=== PATIENT | female | born 1930 | race Two or more races ===

== ENCOUNTER 2017-11-13 21:37 | Inpatient (IN) | payer MEDICARE, OTHER ==
[~2017-11-13] VITALS: Ht 152.4 cm; Wt 48.1 kg
[~2017-11-13 21:37] MED LIST: ACET650T11 PO; CARB1TAB14 PO; CARB300C PO; ESCI20TA PO; PRAM1.5T3 PO; RASA1TAB PO
[2017-11-13] MEDS ORDERED: diphenhydrAMINE 50 MG/1 ML VIAL IV ONE (22:00)
[2017-11-13] MEDS ORDERED: IV NORMAL SALINE 1000 ML BAG IV ONE (22:00)
--- NOTE | 2017-11-13 22:00 | NUR ---
Patient brought in by rescue from home for c/o tremors worse than usual in the last 3 days. patient upon arrival unable to stay still. No other distress noted
--- NOTE | 2017-11-13 22:05 | NUR ---
FAMILY TO BRING IN LIST OF MEDS
[2017-11-13] MEDS ORDERED: diphenhydrAMINE 50 MG/1 ML VIAL ONE (22:35)
[2017-11-13 22:46] LABS: EOSINOPHILS % (AUTO) 0.1 % (0.0-7.0); HEMATOCRIT 26.9 % (31.2-41.9); LYMPHOCYTES # (AUTO) 1.6 K/uL (20.0-40.0); LYMPHOCYTES % (AUTO) 11.4 % (20.5-51.5); MEAN CORPUSCULAR HEMOGLOBIN 28.1 uug (24.7-32.8); MEAN CORPUSCULAR HGB CONC 34 g/dL (32.3-35.6); MEAN CORPUSCULAR VOLUME 83.9 fL (75.5-95.3); MONOCYTES # (AUTO) 1.4 K/uL (2.0-10.0); MONOCYTES % (AUTO) 10.1 % (0.0-11.0); NEUTROPHILS % (AUTO) 78.4 % (38.5-71.5); PLATELET COUNT (AUTO) 308 K/uL (179-408)
[2017-11-13 22:53] LABS: *BILIRUBIN,URIN NEGATIVE (NEGATIVE); *BLOOD, URINE 3+ (NEGATIVE); *CLARITY,URINE CLOUDY (CLEAR); *COLOR,URINE DARK YELLOW (YELLOW); *KETONES,URINE TRACE (NEGATIVE); *PROTEIN,URINE 2+ (NEGATIVE); *UROBILINOGEN,URINE 0.2 E.U./dl (NORMAL); LEUKOCYTE ESTERASE ,URINE 3+ (NEGATIVE); NITRITE, URINE POSITIVE (NEGATIVE); PH,URINE 8.5 (5.0-8.0); UGLUCOSE NEGATIVE (NEGATIVE)
[2017-11-13 22:59] LABS: ALANINE AMINOTRANSFERASE 7 U/L (14-59); ALKALINE PHOSPHATASE 89 U/L (50-136); ASPARTATE AMINOTRANSFERASE 33 U/L (15-37); BILIRUBIN,DIRECT 0.2 mg/dL (0.0-0.2); BILIRUBIN,TOTAL 0.6 mg/dL (0.2-1.0); CARBON DIOXIDE 23 mmol/L (21-32); CHLORIDE 101 mmol/L (98-107); CREATININE 1.3 mg/dL (0.6-1.3); GLUCOSE 114 mg/dL (74-106); POTASSIUM 4.5 mmol/L (3.5-5.1); TOTAL PROTEIN, SERUM 6.2 g/dL (6.4-8.2); UREA NITROGEN, BLOOD 52 mg/dL (7-18)
--- NOTE | 2017-11-13 23:00 | NUR ---
Patient clam sleeping with no distress noted
[2017-11-13 23:04] LABS: BACTERIA,URINE MANY /HPF (NONE SEEN); RBC,URINE 50-80 /HPF (0-3); SQUAMOUS EPITHELIAL CELL,UR FEW /HPF (NONE SEEN); WBC,URINE TNTC /HPF (0-3)
[2017-11-13] MEDS ORDERED: HYDROMORPHONE 1 MG/1 ML DISP.SYRIN IV ONE (23:15)
[2017-11-13] MEDS ORDERED: ONDANSETRON IV *ER 4 MG/2 ML VIAL IV ONE (23:15)
--- NOTE | 2017-11-13 23:23 | NUR ---
Call placed to Dr. Morton, message left for return call.
--- NOTE | 2017-11-13 23:27 | NUR ---
Dr. Morton [facility]
[2017-11-13] MEDS ORDERED: ASPI81TA31 PO (23:32)
[2017-11-13] MEDS ORDERED: DULO20CA PO (23:32)
[2017-11-13] MEDS ORDERED: NORT25CA5 PO (23:32)
[2017-11-13] MEDS ORDERED: QUET25TA PO (23:32)
[2017-11-13] MEDS ORDERED: RASA0.5T2 PO (23:32)
[2017-11-13] MEDS ORDERED: CARB-93 PO (23:32)
[2017-11-13] MEDS ORDERED: PRAV40TA PO (23:32)
[2017-11-13] MEDS ORDERED: PRAM1.5T7 PO (23:32)
[2017-11-13] MEDS ORDERED: ENTA200T PO (23:32)
--- NOTE | 2017-11-14 00:40 | NUR ---
transfered to 2nd floor Tele
[2017-11-14] MEDS ORDERED: CEFTRIAXONE 1 G in IV DEXTROSE 5% 50 ML IV SCH (00:45)
[2017-11-14] MEDS ORDERED: MAGNESIUM HYDROXIDE 30 ML LIQUID UDC PO PRN (00:45)
[2017-11-14] MEDS ORDERED: Z GUARD REMEDY PASTE 57 GM TUBE TOP PRN (00:45)
[2017-11-14] MEDS ORDERED: ONDANSETRON 4 MG/2 ML VIAL IV PRN (00:45)
--- NOTE | 2017-11-14 01:00 | NUR ---
Received patient from ER [facility] Admitted under the care of Dr. Valdez. Belongs list completed.
[2017-11-14 01:17] VITALS: BP 139/92
[2017-11-14 04:00] VITALS: BP 113/50
[2017-11-14] MEDS ORDERED: CEFTRIAXONE 1 G VIAL ONE (05:20)
[2017-11-14 06:40] LABS: BASOPHILS % (AUTO) 0.1 % (0.0-2.0); EOSINOPHILS % (AUTO) 0.1 % (0.0-7.0); HEMATOCRIT 25.4 % (31.2-41.9); HEMOGLOBIN 8.4 g/dL (10.9-14.3); LYMPHOCYTES # (AUTO) 1.3 K/uL (20.0-40.0); LYMPHOCYTES % (AUTO) 8.7 % (20.5-51.5); MEAN CORPUSCULAR HEMOGLOBIN 28.1 uug (24.7-32.8); MEAN CORPUSCULAR HGB CONC 33 g/dL (32.3-35.6); MEAN CORPUSCULAR VOLUME 84.6 fL (75.5-95.3); MONOCYTES % (AUTO) 13.8 % (0.0-11.0); NEUTROPHILS # (AUTO) 11.2 K/uL (1.8-8.9); NEUTROPHILS % (AUTO) 77.3 % (38.5-71.5); PLATELET COUNT (AUTO) 276 K/uL (179-408); WHITE BLOOD COUNT (AUTO) 14.5 K/uL (3.8-11.8)
--- NOTE | 2017-11-14 06:56 | NUR ---
pt. able to sleep the entire night. breathing even and nonlabored. safety measures provided. call light in reach. will endorse to AM shift nurse.
[2017-11-14 07:04] LABS: CARBON DIOXIDE 25 mmol/L (21-32); CHLORIDE 105 mmol/L (98-107); CREATININE 1.3 mg/dL (0.6-1.3); GLUCOSE 112 mg/dL (74-106); POTASSIUM 5.3 mmol/L (3.5-5.1); UREA NITROGEN, BLOOD 54 mg/dL (7-18)
[2017-11-14] MEDS: IV NS 1000 ML 1,000 ML IV PRN (07:42)
--- NOTE | 2017-11-14 08:00 | NUR ---
VERY FORGETFUL, NEEDS CONSTANT SUPERVISION FOR SAFETY. NO SIGNS OF DISTRESS
[2017-11-14] MEDS: DULOXETINE 20 MG CAPSULE.DR PO SCH (08:46)
[2017-11-14] MEDS: CARBIDOPA/LEVODOPA 25-100MG TABLET PO SCH ×4 (08:46→20:12)
[2017-11-14] MEDS: ASPIRIN 81 MG TAB.CHEW PO SCH (08:46)
[2017-11-14] MEDS: QUETIAPINE FUMARATE 25 MG TABLET PO SCH ×2 (08:46→17:05)
[2017-11-14] MEDS: ENTACAPONE 200 MG TABLET PO SCH ×4 (08:46→20:13)
[2017-11-14] MEDS ORDERED: Medication Not On Formulary EA (Rasagiline Mesylate 0.5 MG) PO SCH (09:00)
[2017-11-14] MEDS: PRAMIPEXOLE 1 MG TABLET PO SCH (11:11)
[2017-11-14 12:02] VITALS: BP 115/56
[2017-11-14 13:04] LABS: THYROID STIMULATING HORMONE 0.459 mIU/mL (0.358-3.740)
[2017-11-14] MEDS ORDERED: SODIUM POLYSTYRENE SULFONATE 15 G/60 ML LIQUID UDC PO ONE (14:30)
--- NOTE | 2017-11-14 15:00 | NUR ---
SEEN BY DR TINAJERO NOTED LABS WITH ORDERS. KAYEXALATE GIVEN FOR K 5.3
[2017-11-14 15:25] VITALS: BP 108/40
--- NOTE | 2017-11-14 19:30 | NUR ---
PT RECEIVED IN BED, AWAKE. A/OX1. FARSI SPEAKING. DAUGHTERS AT BEDSIDE. V/S STABLE. TEMPERATURE ELEVATED AT 100.5 F. WILL ADMIN TYLENOL ORDERED. IN NO ACUTE DISTRESS. NO C/O PAIN AT THIS TIME. IV INTACT AND PATENT. ON RA TOLERATING WELL. SAFETY MEASURES IMPLEMENTED. BED ALARM SET. CALL LIGHT WITHIN REACH.
[2017-11-14 20:00] VITALS: BP 101/47
[2017-11-14] MEDS: ACETAMINOPHEN 325 MG TABLET PO PRN (20:12)
[2017-11-14] MEDS: NORTRIPTYLINE HCL 25 MG CAPSULE PO SCH (20:13)
[2017-11-14] MEDS: ATORVASTATIN 10 MG TABLET PO SCH (20:13)
[2017-11-15] MEDS: HYDROCODONE/APAP 5-325MG TABLET PO PRN ×2 (02:24→22:14)
[2017-11-15] MEDS: CEFTRIAXONE 1 G in IV DEXTROSE 5% 50 ML IV SCH (05:18)
--- NOTE | 2017-11-15 06:47 | NUR ---
END OF SHIFT NOTES. PT SLEPT WELL THROUGHOUT SHIFT. IN STABLE CONDITION. IVF INFUSING. IV ABX INFUSED. AFEBRILE. ALL NEEDS ATTENDED. SAFETY MAINTAINED. CALL LIGHT WITHIN REACH.
[2017-11-15 06:59] VITALS: BP 92/45
--- NOTE | 2017-11-15 08:00 | NUR ---
PATIENT IS SEEN RESTING WITH NO SIGNS OR SYMPTOMS OF DISTRESS OR DISCOMFORT.WILL CONTINUE TO MONITOR PATIENT
[2017-11-15 08:03] LABS: BASOPHILS % (AUTO) 0.2 % (0.0-2.0); EOSINOPHILS % (AUTO) 0.4 % (0.0-7.0); HEMATOCRIT 26.2 % (31.2-41.9); HEMOGLOBIN 8.6 g/dL (10.9-14.3); LYMPHOCYTES # (AUTO) 1.7 K/uL (20.0-40.0); MEAN CORPUSCULAR HGB CONC 33 g/dL (32.3-35.6); MEAN CORPUSCULAR VOLUME 84.9 fL (75.5-95.3); MONOCYTES # (AUTO) 1.3 K/uL (2.0-10.0); MONOCYTES % (AUTO) 10.6 % (0.0-11.0); NEUTROPHILS # (AUTO) 9.1 K/uL (1.8-8.9); NEUTROPHILS % (AUTO) 74.8 % (38.5-71.5); PLATELET COUNT (AUTO) 328 K/uL (179-408); RED BLOOD CELL COUNT(AUTO) 3.08 MIL/uL (3.63-4.92); WHITE BLOOD COUNT (AUTO) 12.2 K/uL (3.8-11.8)
[2017-11-15] MEDS: PRAMIPEXOLE 1 MG TABLET PO SCH (08:42)
[2017-11-15] MEDS: ASPIRIN 81 MG TAB.CHEW PO SCH (08:43)
[2017-11-15] MEDS: ACETAMINOPHEN 325 MG TABLET PO PRN (08:43)
[2017-11-15] MEDS: CARBIDOPA/LEVODOPA 25-100MG TABLET PO SCH ×4 (08:43→21:06)
[2017-11-15] MEDS: DULOXETINE 20 MG CAPSULE.DR PO SCH (08:43)
[2017-11-15] MEDS: ENTACAPONE 200 MG TABLET PO SCH ×4 (08:43→21:06)
[2017-11-15] MEDS: QUETIAPINE FUMARATE 25 MG TABLET PO SCH ×2 (08:43→16:59)
[2017-11-15 09:46] LABS: THYROID STIMULATING HORMONE 3.288 mIU/mL (0.358-3.740)
[2017-11-15 11:52] VITALS: BP 89/46
--- NOTE | 2017-11-15 12:00 | NUR ---
NO ACUTE CHANGE, DR TINAJERO MADE AWARE OF BLOOD CULTURE GR NEGATIVE RODS
[2017-11-15 12:30] LABS: ALANINE AMINOTRANSFERASE 8 U/L (14-59); ALKALINE PHOSPHATASE 74 U/L (50-136); ASPARTATE AMINOTRANSFERASE 23 U/L (15-37); BILIRUBIN,TOTAL 0.5 mg/dL (0.2-1.0); CARBON DIOXIDE 25 mmol/L (21-32); CHLORIDE 106 mmol/L (98-107); CHOLESTEROL 127 mg/dL (<200); GLUCOSE 93 mg/dL (74-106); MAGNESIUM 2.4 mg/dL (1.8-2.4); PHOSPHOROUS 3.2 mg/dL (2.5-4.9); POTASSIUM 4.1 mmol/L (3.5-5.1); TOTAL PROTEIN, SERUM 5.8 g/dL (6.4-8.2); TRIGLYCERIDES 236 MG/DL (30-150); UREA NITROGEN, BLOOD 37 mg/dL (7-18)
[2017-11-15 12:51] LABS: HDL CHOLESTEROL < 10 mg/dL (40-60)
[2017-11-15 15:30] VITALS: BP 92/48
--- NOTE | 2017-11-15 17:16 | NUR ---
REPORT GIVEN TO RECEIVING RN
[2017-11-15 19:00] VITALS: BP 168/148
--- NOTE | 2017-11-15 19:47 | NUR ---
REPORT RECEIVED FROM FLAQUITA QUINTERO. PATIENT SLEEPING DURING INITIAL ROUNDS. NO S/S OF PAIN/DISCOMFORTS AT THIS TIME. CONTINUE CURRENT PLAN OF CARE.
[2017-11-15] MEDS: ATORVASTATIN 10 MG TABLET PO SCH (21:06)
[2017-11-15] MEDS: NORTRIPTYLINE HCL 25 MG CAPSULE PO SCH (21:06)
[2017-11-15 21:16] VITALS: BP 131/71
--- NOTE | 2017-11-15 21:30 | NUR ---
RECEIVED REPORT FROM LAB. PT BC IS GRAM(-) RODS, LEFT MESSAGE FOR DR. BURCIAGA.
[2017-11-16] MEDS: CEFTRIAXONE 1 G in IV DEXTROSE 5% 50 ML IV SCH (04:31)
--- NOTE | 2017-11-16 06:20 | NUR ---
SLEPT FAIR. CONFUSED AT TIMES. MEDICATED ONCE FOR GENERALIZED PAIN WITH RELIEF. CONTINUE ON ATB IVPB ORDERED WITHOUT S/ S OF ADVERSE REACTION NOTED. SAFETY MEASURES AND FALL PRECAUTION MAINTAINED. NO SIGNIFICANT EVENT REPORTED ALL NIGHT. CONTINUE CURRENT PLAN OF CARE.
[2017-11-16 06:39] LABS: BASOPHILS # (AUTO) 0.1 K/uL (0.0-8.0); BASOPHILS % (AUTO) 0.6 % (0.0-2.0); EOSINOPHILS % (AUTO) 0.1 % (0.0-7.0); HEMATOCRIT 26.2 % (31.2-41.9); HEMOGLOBIN 8.7 g/dL (10.9-14.3); LYMPHOCYTES # (AUTO) 1.4 K/uL (20.0-40.0); LYMPHOCYTES % (AUTO) 9.8 % (20.5-51.5); MEAN CORPUSCULAR HEMOGLOBIN 27.9 uug (24.7-32.8); MEAN CORPUSCULAR HGB CONC 33 g/dL (32.3-35.6); MEAN CORPUSCULAR VOLUME 84.2 fL (75.5-95.3); MONOCYTES # (AUTO) 1.2 K/uL (2.0-10.0); MONOCYTES % (AUTO) 8.5 % (0.0-11.0); NEUTROPHILS # (AUTO) 11.7 K/uL (1.8-8.9); PLATELET COUNT (AUTO) 379 K/uL (179-408); RED BLOOD CELL COUNT(AUTO) 3.11 MIL/uL (3.63-4.92); WHITE BLOOD COUNT (AUTO) 14.4 K/uL (3.8-11.8)
[2017-11-16 07:05] LABS: CARBON DIOXIDE 24 mmol/L (21-32); CHLORIDE 107 mmol/L (98-107); GLUCOSE 93 mg/dL (74-106); MAGNESIUM 2.4 mg/dL (1.8-2.4); PHOSPHOROUS 3.3 mg/dL (2.5-4.9); POTASSIUM 4.1 mmol/L (3.5-5.1); UREA NITROGEN, BLOOD 28 mg/dL (7-18)
--- NOTE | 2017-11-16 07:30 | NUR ---
Received patient awake, verbally responsive, not in any form of acute distress. She denies any pain or discomfort at this time. Call light placed within reach.
[2017-11-16] MEDS: QUETIAPINE FUMARATE 25 MG TABLET PO SCH ×2 (09:27→16:46)
[2017-11-16] MEDS: ASPIRIN 81 MG TAB.CHEW PO SCH (09:27)
[2017-11-16] MEDS: DULOXETINE 20 MG CAPSULE.DR PO SCH (09:28)
[2017-11-16] MEDS: ENTACAPONE 200 MG TABLET PO SCH ×4 (09:28→21:18)
[2017-11-16] MEDS: CARBIDOPA/LEVODOPA 25-100MG TABLET PO SCH ×4 (09:28→21:17)
[2017-11-16] MEDS ORDERED: BISACODYL 10 MG SUPP.RECT RC ONE (10:45)
[2017-11-16 11:15] VITALS: BP 96/63
[2017-11-16] MEDS: IV NS 1000 ML 1,000 ML IV PRN (13:39)
[2017-11-16] MEDS: SOD FERRIC GLUC COMPLX/SUCROSE 125 MG in IV NORMAL SALINE 100 ML IV SCH (14:16)
--- NOTE | 2017-11-16 15:25 | NUR ---
Assisted to bathroom to have BM as per patient request. Collected stool specimen for OB as endorsed by overnight babysitter nurse. Placed patient back to bed comfortably. Family at bedside.
[2017-11-16 15:40] VITALS: BP 111/41
[2017-11-16] MEDS ORDERED: RASAGILINE 0.5 MG PO SCH (16:00)
[2017-11-16] MEDS ORDERED: [UNRECOGNIZED DRUG - OTHER] PO SCH (16:00)
[2017-11-16 18:07] LABS: *OCCULT BLOOD STOOL POSITIVE (NEGATIVE)
[2017-11-16] MEDS: HYDROCODONE/APAP 5-325MG TABLET PO PRN (19:09)
--- NOTE | 2017-11-16 19:10 | NUR ---
Notified Dr. Barragan regarding blood culture preliminary result of gram negative rods and positive stool occult blood with no order and stated will check into that. Informed him of patient noted not eating adequately and said to endorse to night nurse for swallow eval. Endorsed accordingly to night nurse.
--- NOTE | 2017-11-16 19:45 | NUR ---
RECEIVED SHIFT REPORT FROM DAY SHIFT NURSE. PATIENT IN STABLE CONDITION, NO S/S OF DISTRESS. PATIENT WILL NEED SWALLOW EVALUATION PER MD ORDERS. ASPIRATION PRECAUTION. WILL CRUSH MEDICATIONS AND GIVE WITH APPLESAUCE. BED ALARM ON, CALL LIGHT WITHIN REACH. PATIENT ALSO FALL PRECAUTION AND WILL MONITOR.
[2017-11-16 20:00] VITALS: BP 141/88
[2017-11-16] MEDS: LACTOBACILLUS RHAMNOSUS GG 1 EACH CAPSULE PO SCH (21:18)
[2017-11-16] MEDS: ATORVASTATIN 10 MG TABLET PO SCH (21:18)
[2017-11-16] MEDS: NORTRIPTYLINE HCL 25 MG CAPSULE PO SCH (21:18)
[2017-11-16] MEDS: VALACYCLOVIR HCL 500 MG TABLET PO SCH (21:21)
[2017-11-17] MEDS: CEFTRIAXONE 1 G in IV DEXTROSE 5% 50 ML IV SCH (04:24)
[2017-11-17 05:29] VITALS: BP 133/53
[2017-11-17] MEDS ORDERED: BISACODYL 10 MG SUPP.RECT RC PRN (06:00)
[2017-11-17] MEDS: IV NS 1000 ML 1,000 ML IV PRN (06:02)
--- NOTE | 2017-11-17 06:06 | NUR ---
PATIENT SLEPT THROUGH MAJORITY OF THE NIGHT. NO S/S OF DISTRESS, STABLE CONDITION. IN SAFE CONDITION/ ENVIRONMENT. BED ALARM IS BROKEN BUT PATIENT HAS BEEN MONITORED CLOSELY, CLOSE TO NURSING STATION, FOR FALL PRECAUTION. BED IN LOCKED/LOW POSITION, SIDE RAILS UP X2, CALL LIGHT WITHIN REACH. SKIN CARE AND SHOSHANA-CARE PROVIDED.
[2017-11-17 07:18] LABS: ALANINE AMINOTRANSFERASE 10 U/L (14-59); ALKALINE PHOSPHATASE 70 U/L (50-136); ASPARTATE AMINOTRANSFERASE 16 U/L (15-37); BILIRUBIN,TOTAL 0.3 mg/dL (0.2-1.0); CARBON DIOXIDE 24 mmol/L (21-32); CHLORIDE 109 mmol/L (98-107); CREATININE 0.8 mg/dL (0.6-1.3); GLUCOSE 101 mg/dL (74-106); MAGNESIUM 2.2 mg/dL (1.8-2.4); PHOSPHOROUS 2.9 mg/dL (2.5-4.9); TOTAL PROTEIN, SERUM 5.5 g/dL (6.4-8.2); UREA NITROGEN, BLOOD 19 mg/dL (7-18)
[2017-11-17 07:44] LABS: BASOPHILS % (AUTO) 0.3 % (0.0-2.0); EOSINOPHILS % (AUTO) 0.2 % (0.0-7.0); HEMATOCRIT 24.9 % (31.2-41.9); HEMOGLOBIN 8.3 g/dL (10.9-14.3); LYMPHOCYTES # (AUTO) 1.2 K/uL (20.0-40.0); MEAN CORPUSCULAR HGB CONC 33 g/dL (32.3-35.6); MEAN CORPUSCULAR VOLUME 84.4 fL (75.5-95.3); MONOCYTES # (AUTO) 1.1 K/uL (2.0-10.0); MONOCYTES % (AUTO) 7.2 % (0.0-11.0); NEUTROPHILS # (AUTO) 12.4 K/uL (1.8-8.9); NEUTROPHILS % (AUTO) 84.3 % (38.5-71.5); PLATELET COUNT (AUTO) 415 K/uL (179-408); RED BLOOD CELL COUNT(AUTO) 2.95 MIL/uL (3.63-4.92); WHITE BLOOD COUNT (AUTO) 14.7 K/uL (3.8-11.8)
--- NOTE | 2017-11-17 08:00 | NUR ---
Received pt in bed awake and alert, oriented x2, verbally responsive in her own language, reposition for comfort, denies any discomfort at this time, no distress.
[2017-11-17] MEDS ORDERED: LEVOFLOXACIN 500 MG/D5W 500 MG in PREMIXED 1 EACH IV SCH (08:30)
[2017-11-17] MEDS ORDERED: FUROSEMIDE 20 MG/2 ML VIAL IV ONE (08:30)
[2017-11-17] MEDS: CARBIDOPA/LEVODOPA 25-100MG TABLET PO SCH ×4 (09:05→20:43)
[2017-11-17] MEDS: QUETIAPINE FUMARATE 25 MG TABLET PO SCH ×2 (09:05→17:33)
[2017-11-17] MEDS: ENTACAPONE 200 MG TABLET PO SCH ×4 (09:05→20:43)
[2017-11-17] MEDS: VALACYCLOVIR HCL 500 MG TABLET PO SCH ×2 (09:05→20:43)
[2017-11-17] MEDS: ASPIRIN 81 MG TAB.CHEW PO SCH (09:05)
[2017-11-17] MEDS: LACTOBACILLUS RHAMNOSUS GG 1 EACH CAPSULE PO SCH ×2 (09:05→20:43)
[2017-11-17] MEDS: DULOXETINE 20 MG CAPSULE.DR PO SCH (09:05)
[2017-11-17 11:40] VITALS: BP 99/44
[2017-11-17] MEDS ORDERED: LEVOFLOXACIN 500 MG/D5W 500 MG in PREMIXED 1 EACH IV ONE (12:00)
--- NOTE | 2017-11-17 13:12 | NUR ---
Pt in bed awake, alert, no changes in mental status, no c/o pain continue with same plan of care.
[2017-11-17] MEDS: SOD FERRIC GLUC COMPLX/SUCROSE 125 MG in IV NORMAL SALINE 100 ML IV SCH (14:41)
[2017-11-17 15:38] VITALS: BP 109/47
[2017-11-17] MEDS: ACETAMINOPHEN 325 MG TABLET PO PRN (15:38)
[2017-11-17] MEDS ORDERED: HYDR-3326 PO (18:55)
[2017-11-17] MEDS ORDERED: ACET325T53 PO (18:55)
[2017-11-17] MEDS ORDERED: LEVO500T2 PO (18:55)
[2017-11-17] MEDS ORDERED: MENT71OI TOP (18:55)
[2017-11-17] MEDS ORDERED: VALA500T PO (18:55)
[2017-11-17] MEDS ORDERED: ATOR10TA PO (18:55)
[2017-11-17] MEDS ORDERED: LACT1CAP57 PO (18:55)
--- NOTE | 2017-11-17 19:27 | NUR ---
Received patient in bed sleeping at this time. No s/s of pain/discomforts noted. Safety measures and fall precaution maintained. IVF infising, no redness/infiltration on site noted. Continue care as planned.
[2017-11-17 20:00] VITALS: BP 119/59
[2017-11-17] MEDS: ATORVASTATIN 10 MG TABLET PO SCH (20:43)
[2017-11-17] MEDS: NORTRIPTYLINE HCL 25 MG CAPSULE PO SCH (20:43)
--- NOTE | 2017-11-17 22:15 | NUR ---
Discharge to ARU with belongings via wheelchair in stable condition. No respiratory distress noted. HHL d/c'd as ordered. Report given to Laya SAMS.
[2017-11-18] MEDS ORDERED: LEVOFLOXACIN 250MG /D5W 250 MG in PREMIXED 1 EACH IV SCH (09:00)
== END 2017-11-17 22:20 | DRG 871 ==
LOC: ER 21:38 → TELE 11-14 00:20 → MED 11-14 16:15
PROVIDERS: ADMIT Nurse Practitioner Acute Care; ATTEND Internal Medicine
DX: A41.51 Sepsis due to Escherichia coli [E. coli] (principal); I50.33 Acute on chronic diastolic (congestive) heart failure; N17.0 Acute kidney failure with tubular necrosis; E43 Unspecified severe protein-calorie malnutrition; J84.9 Interstitial pulmonary disease, unspecified; G92 Toxic encephalopathy; K92.2 Gastrointestinal hemorrhage, unspecified; D68.59 Other primary thrombophilia; G20 Parkinson's disease; E87.5 Hyperkalemia; N39.0 Urinary tract infection, site not specified; K92.1 Melena; J98.11 Atelectasis; F02.80 Dementia in other diseases classified elsewhere, unspecified severity, without behavioral disturbance, psychotic disturbance, mood disturbance, and anxiety; R65.20 Severe sepsis without septic shock; B96.4 Proteus (mirabilis) (morganii) as the cause of diseases classified elsewhere; I11.0 Hypertensive heart disease with heart failure; Z91.81 History of falling; R32 Unspecified urinary incontinence; Z68.20 Body mass index [BMI] 20.0-20.9, adult; H44.521 Atrophy of globe, right eye; M81.0 Age-related osteoporosis without current pathological fracture; Z74.09 Other reduced mobility; F32.9 Major depressive disorder, single episode, unspecified; F41.9 Anxiety disorder, unspecified; Z86.73 Personal history of transient ischemic attack (TIA), and cerebral infarction without residual deficits; Z79.82 Long term (current) use of aspirin; K56.41 Fecal impaction; M19.012 Primary osteoarthritis, left shoulder; M19.011 Primary osteoarthritis, right shoulder; M50.30 Other cervical disc degeneration, unspecified cervical region; I35.1 Nonrheumatic aortic (valve) insufficiency; G24.01 Drug induced subacute dyskinesia; E78.5 Hyperlipidemia, unspecified; E03.9 Hypothyroidism, unspecified; B00.1 Herpesviral vesicular dermatitis; Z90.49 Acquired absence of other specified parts of digestive tract; Z90.710 Acquired absence of both cervix and uterus; D50.9 Iron deficiency anemia, unspecified
CPT/HCPCS: 36415; 70030-TC; 70450; 71010; 82378; 83550; 83605; 83735; 84100; 84443; 85025; 85730; 87040; 87077; 87086; 92610; 93005; 93307; 95819; 97110; 97116; 97165; 97530; A4663; C1758; J0696; J1200; J1940; J1956; J2916; J3490; J7030; J7060

== ENCOUNTER 2017-11-17 22:50 | Inpatient (IN) | payer MEDICARE, OTHER ==
[~2017-11-17] VITALS: Ht 152.4 cm; Wt 48.1 kg
[2017-11-17 22:30] VITALS: BP 103/52
[~2017-11-17 22:50] MED LIST changes: +ACET325T53 PO; -ACET650T11 PO; +ASPI81TA31 PO; +ATOR10TA PO; +CARB-93 PO; -CARB1TAB14 PO; -CARB300C PO; +DULO20CA PO; +ENTA200T PO; -ESCI20TA PO; +HYDR-3326 PO; +LACT1CAP57 PO; +LEVO500T2 PO; +MENT71OI TOP; +NORT25CA5 PO; -PRAM1.5T3 PO; +PRAM1.5T7 PO; +PRAV40TA PO; +QUET25TA PO; +RASA0.5T2 PO; -RASA1TAB PO; +VALA500T PO
--- NOTE | 2017-11-17 23:00 | NUR ---
Patient admitted from Med Surg unit. Received pt at 2220 via wheelchair assisted by Med surg GEOGRAPHY DEPARTMENT CHAIR. AAO x1 to 2. Vital signs stable. No acute distress noted. No c/o pain or discomfort. No isolation as per report. Farsi speaking but sometimes speaks in Turkmen. Crushed meds. On room air, tolerating well. Routine admission done. MRSA swab sent to lab. Oriented to unit and equipment. Safety measures maintained. Call light and personal belongings within reach. Will continue to monitor.
--- NOTE | 2017-11-18 01:37 | NUR ---
Called [facility] to reach out to Dr. Feng about med recon and concerns about isolation. [facility] will reach out to Dr. Feng to call us back.
--- NOTE | 2017-11-18 02:39 | NUR ---
notified. Per , med recon will be done in the morning. also stated no need for isolation for E.coli in urine and labial herpes. Will continue to monitor patient.
--- NOTE | 2017-11-18 08:30 | NUR ---
Received patient awake, lying on bed with head of bed above 45 degree angle with no SOB, distress or discomforts. All needs attended and anticipated. Call light placed within reach.
[2017-11-18 08:51] VITALS: BP 140/75
--- NOTE | 2017-11-18 09:00 | NUR ---
Patient noted working with ST. Will continue to monitor
--- NOTE | 2017-11-18 09:30 | NUR ---
Patient awake, responsive to verbal and tactile stimuli noted patient seated on the wheelchair and is working with the OT. Tolerating well.
--- NOTE | 2017-11-18 13:00 | NUR ---
Patient's son Leonid Hoskins arrived at the hospital and decided to take the patient home against medical advice. Explained to patient son the risks of leaving against medical advice several times but still the patient's son insisted of leaving and taking the patient home. MD present at the unit explained as well to the son the risks but still insisted of leaving. Customer Logistics Manager, outsole caser notified of the decision of Leonid Hoskins. Patient left the hospital against medical advice accompanied by caregiver and son.
[2017-11-18] MEDS ORDERED: QUETIAPINE FUMARATE 25 MG TABLET PO SCH (17:00)
[2017-11-18] MEDS ORDERED: ENTACAPONE 200 MG TABLET PO SCH (17:00)
[2017-11-18] MEDS ORDERED: LACTOBACILLUS RHAMNOSUS GG 1 EACH CAPSULE PO SCH (21:00)
[2017-11-18] MEDS ORDERED: VALACYCLOVIR HCL 500 MG TABLET PO SCH (21:00)
[2017-11-19] MEDS ORDERED: DULOXETINE 20 MG CAPSULE.DR PO SCH (09:00)
[2017-11-19] MEDS ORDERED: LEVOFLOXACIN 500 MG TABLET PO SCH (09:00)
[2017-11-19] MEDS ORDERED: CARBIDOPA/LEVODOPA 25-100MG TABLET PO SCH (13:00)
== END 2017-11-18 13:00 | disposition left against medical advice (07) | DRG 57 ==
PROVIDERS: ADMIT Physical Medicine & Rehabilitation Pain Medicine; ATTEND Physical Medicine & Rehabilitation Pain Medicine
DX: G20 Parkinson's disease (principal); J84.9 Interstitial pulmonary disease, unspecified; E46 Unspecified protein-calorie malnutrition; I50.32 Chronic diastolic (congestive) heart failure; I11.0 Hypertensive heart disease with heart failure; N39.0 Urinary tract infection, site not specified; R47.01 Aphasia; D64.9 Anemia, unspecified; B96.20 Unspecified Escherichia coli [E. coli] as the cause of diseases classified elsewhere; B96.4 Proteus (mirabilis) (morganii) as the cause of diseases classified elsewhere; E03.9 Hypothyroidism, unspecified; E78.5 Hyperlipidemia, unspecified; F03.90 Unspecified dementia, unspecified severity, without behavioral disturbance, psychotic disturbance, mood disturbance, and anxiety; M19.90 Unspecified osteoarthritis, unspecified site; Z86.73 Personal history of transient ischemic attack (TIA), and cerebral infarction without residual deficits; M81.0 Age-related osteoporosis without current pathological fracture; R32 Unspecified urinary incontinence; R29.6 Repeated falls; R53.1 Weakness
CPT/HCPCS: 92526; 92610; 97165; 97530; 97535; A4663

== ENCOUNTER 2017-11-19 15:37 | Inpatient (IN) | payer MEDICARE, OTHER ==
[~2017-11-19] VITALS: Ht 152.4 cm; Wt 48.1 kg
[~2017-11-19 15:37] MED LIST changes: -PRAV40TA PO
[2017-11-19] MEDS ORDERED: Z GUARD REMEDY PASTE 57 GM TUBE TOP PRN ×2 (16:30→17:15)
[2017-11-19] MEDS ORDERED: ACETAMINOPHEN 325 MG TABLET PO PRN (17:15)
[2017-11-19] MEDS: LACTOBACILLUS RHAMNOSUS GG 1 EACH CAPSULE PO SCH (21:09)
[2017-11-19] MEDS: CARBIDOPA/LEVODOPA 25-100MG TABLET PO SCH (21:09)
[2017-11-19] MEDS: ATORVASTATIN 10 MG TABLET PO SCH (21:09)
[2017-11-19] MEDS: ENTACAPONE 200 MG TABLET PO SCH (21:09)
[2017-11-19] MEDS: NORTRIPTYLINE HCL 25 MG CAPSULE PO SCH (21:12)
[2017-11-19] MEDS: VALACYCLOVIR HCL 500 MG TABLET PO SCH (21:12)
[2017-11-19 21:32] VITALS: BP 133/60
[2017-11-20] MEDS ORDERED: QUETIAPINE FUMARATE 25 MG TABLET PO SCH ×2 (09:00→14:00)
[2017-11-20] MEDS ORDERED: Medication Not On Formulary EA (Rasagiline Mesylate 0.5 MG) PO SCH (09:00)
[2017-11-20] MEDS: ENTACAPONE 200 MG TABLET PO SCH ×4 (09:19→20:22)
[2017-11-20] MEDS: LACTOBACILLUS RHAMNOSUS GG 1 EACH CAPSULE PO SCH ×2 (09:19→20:22)
[2017-11-20] MEDS: PRAMIPEXOLE 1 MG TABLET PO SCH (09:19)
[2017-11-20] MEDS: CARBIDOPA/LEVODOPA 25-100MG TABLET PO SCH ×4 (09:20→20:22)
[2017-11-20] MEDS: DULOXETINE 20 MG CAPSULE.DR PO SCH (09:20)
[2017-11-20] MEDS: LEVOFLOXACIN 500 MG TABLET PO SCH (09:20)
[2017-11-20] MEDS: ASPIRIN 81 MG TAB.CHEW PO SCH (09:21)
[2017-11-20] MEDS: VALACYCLOVIR HCL 500 MG TABLET PO SCH ×2 (09:24→20:22)
[2017-11-20] MEDS: ACETAMINOPHEN 325 MG TABLET PO PRN (14:09)
[2017-11-20] MEDS: QUETIAPINE FUMARATE 25 MG TABLET PO SCH (16:13)
[2017-11-20] MEDS: NORTRIPTYLINE HCL 25 MG CAPSULE PO SCH (20:20)
[2017-11-20] MEDS: ATORVASTATIN 10 MG TABLET PO SCH (20:22)
[2017-11-20 20:54] VITALS: BP 111/59
[2017-11-21] MEDS: HYDROCODONE/APAP 5-325MG TABLET PO PRN (01:12)
[2017-11-21 07:37] VITALS: BP 118/61
[2017-11-21] MEDS: CARBIDOPA/LEVODOPA 25-100MG TABLET PO SCH ×4 (09:04→20:32)
[2017-11-21] MEDS: DULOXETINE 20 MG CAPSULE.DR PO SCH (09:05)
[2017-11-21] MEDS: LACTOBACILLUS RHAMNOSUS GG 1 EACH CAPSULE PO SCH ×2 (09:05→20:32)
[2017-11-21] MEDS: VALACYCLOVIR HCL 500 MG TABLET PO SCH ×2 (09:05→20:33)
[2017-11-21] MEDS: QUETIAPINE FUMARATE 25 MG TABLET PO SCH ×2 (09:05→16:46)
[2017-11-21] MEDS: ENTACAPONE 200 MG TABLET PO SCH ×4 (09:05→20:32)
[2017-11-21] MEDS: PRAMIPEXOLE 1 MG TABLET PO SCH (09:06)
[2017-11-21] MEDS: LEVOFLOXACIN 500 MG TABLET PO SCH (09:06)
[2017-11-21] MEDS: ASPIRIN 81 MG TAB.CHEW PO SCH (09:08)
[2017-11-21 15:00] VITALS: BP 117/65
[2017-11-21] MEDS: ATORVASTATIN 10 MG TABLET PO SCH (20:32)
[2017-11-21] MEDS: NORTRIPTYLINE HCL 25 MG CAPSULE PO SCH (20:33)
[2017-11-21 21:55] VITALS: BP 116/55
[2017-11-22 07:04] VITALS: BP 140/58
[2017-11-22] MEDS: QUETIAPINE FUMARATE 25 MG TABLET PO SCH ×2 (09:44→17:26)
[2017-11-22] MEDS: VALACYCLOVIR HCL 500 MG TABLET PO SCH ×2 (09:44→21:08)
[2017-11-22] MEDS: PRAMIPEXOLE 1 MG TABLET PO SCH (09:45)
[2017-11-22] MEDS: DULOXETINE 20 MG CAPSULE.DR PO SCH (09:45)
[2017-11-22] MEDS: LEVOFLOXACIN 500 MG TABLET PO SCH (09:45)
[2017-11-22] MEDS: ENTACAPONE 200 MG TABLET PO SCH ×4 (09:45→21:07)
[2017-11-22] MEDS: CARBIDOPA/LEVODOPA 25-100MG TABLET PO SCH ×4 (09:45→21:07)
[2017-11-22] MEDS: LACTOBACILLUS RHAMNOSUS GG 1 EACH CAPSULE PO SCH ×2 (09:45→21:07)
[2017-11-22] MEDS: ASPIRIN 81 MG TAB.CHEW PO SCH (09:48)
[2017-11-22 20:21] VITALS: BP 99/58
[2017-11-22] MEDS: ATORVASTATIN 10 MG TABLET PO SCH (21:07)
[2017-11-22] MEDS: NORTRIPTYLINE HCL 25 MG CAPSULE PO SCH (21:08)
[2017-11-23 08:03] VITALS: BP 129/51
[2017-11-23] MEDS: LEVOFLOXACIN 500 MG TABLET PO SCH (08:28)
[2017-11-23] MEDS: PRAMIPEXOLE 1 MG TABLET PO SCH (08:29)
[2017-11-23] MEDS: ENTACAPONE 200 MG TABLET PO SCH ×4 (08:29→20:38)
[2017-11-23] MEDS: QUETIAPINE FUMARATE 25 MG TABLET PO SCH ×2 (08:30→17:25)
[2017-11-23] MEDS: ASPIRIN 81 MG TAB.CHEW PO SCH (08:30)
[2017-11-23] MEDS: DULOXETINE 20 MG CAPSULE.DR PO SCH (08:30)
[2017-11-23] MEDS: CARBIDOPA/LEVODOPA 25-100MG TABLET PO SCH ×4 (08:30→20:38)
[2017-11-23] MEDS: LACTOBACILLUS RHAMNOSUS GG 1 EACH CAPSULE PO SCH ×2 (08:31→20:38)
[2017-11-23] MEDS: VALACYCLOVIR HCL 500 MG TABLET PO SCH ×2 (08:31→20:38)
[2017-11-23 20:10] VITALS: BP 109/60
[2017-11-23] MEDS: NORTRIPTYLINE HCL 25 MG CAPSULE PO SCH (20:38)
[2017-11-23] MEDS: ATORVASTATIN 10 MG TABLET PO SCH (20:38)
[2017-11-23] MEDS: HYDROCODONE/APAP 5-325MG TABLET PO PRN (22:08)
[2017-11-24] MEDS: LEVOFLOXACIN 500 MG TABLET PO SCH (08:25)
[2017-11-24] MEDS: LACTOBACILLUS RHAMNOSUS GG 1 EACH CAPSULE PO SCH ×2 (08:25→20:32)
[2017-11-24] MEDS: PRAMIPEXOLE 1 MG TABLET PO SCH (08:26)
[2017-11-24] MEDS: ENTACAPONE 200 MG TABLET PO SCH ×4 (08:26→20:32)
[2017-11-24] MEDS: ASPIRIN 81 MG TAB.CHEW PO SCH (08:27)
[2017-11-24] MEDS: DULOXETINE 20 MG CAPSULE.DR PO SCH (08:27)
[2017-11-24] MEDS: VALACYCLOVIR HCL 500 MG TABLET PO SCH ×2 (08:27→20:34)
[2017-11-24] MEDS: QUETIAPINE FUMARATE 25 MG TABLET PO SCH ×2 (08:27→17:34)
[2017-11-24] MEDS: CARBIDOPA/LEVODOPA 25-100MG TABLET PO SCH ×4 (08:27→20:32)
[2017-11-24 08:34] VITALS: BP 118/70
[2017-11-24] MEDS: MAGNESIUM HYDROXIDE 30 ML LIQUID UDC PO PRN (12:03)
[2017-11-24] MEDS: ATORVASTATIN 10 MG TABLET PO SCH (20:32)
[2017-11-24] MEDS: NORTRIPTYLINE HCL 25 MG CAPSULE PO SCH (20:34)
[2017-11-25 08:37] VITALS: BP 126/51
[2017-11-25] MEDS: ASPIRIN 81 MG TAB.CHEW PO SCH (08:45)
[2017-11-25] MEDS: CARBIDOPA/LEVODOPA 25-100MG TABLET PO SCH ×4 (08:45→21:12)
[2017-11-25] MEDS: QUETIAPINE FUMARATE 25 MG TABLET PO SCH ×2 (08:45→17:22)
[2017-11-25] MEDS: PRAMIPEXOLE 1 MG TABLET PO SCH (08:45)
[2017-11-25] MEDS: DULOXETINE 20 MG CAPSULE.DR PO SCH (08:45)
[2017-11-25] MEDS: LEVOFLOXACIN 500 MG TABLET PO SCH (08:45)
[2017-11-25] MEDS: ENTACAPONE 200 MG TABLET PO SCH ×4 (08:46→21:12)
[2017-11-25] MEDS: LACTOBACILLUS RHAMNOSUS GG 1 EACH CAPSULE PO SCH ×2 (08:46→21:12)
[2017-11-25] MEDS: VALACYCLOVIR HCL 500 MG TABLET PO SCH ×2 (08:48→21:13)
[2017-11-25 09:34] LABS: ALANINE AMINOTRANSFERASE 13 U/L (14-59); ALKALINE PHOSPHATASE 62 U/L (50-136); ASPARTATE AMINOTRANSFERASE 11 U/L (15-37); BILIRUBIN,TOTAL 0.3 mg/dL (0.2-1.0); CARBON DIOXIDE 28 mmol/L (21-32); CHLORIDE 101 mmol/L (98-107); CREATININE 0.7 mg/dL (0.6-1.3); GLUCOSE 92 mg/dL (74-106); PHOSPHOROUS 2.9 mg/dL (2.5-4.9); POTASSIUM 4.2 mmol/L (3.5-5.1); TOTAL PROTEIN, SERUM 6.3 g/dL (6.4-8.2); UREA NITROGEN, BLOOD 14 mg/dL (7-18)
[2017-11-25 10:05] LABS: BASOPHILS % (AUTO) 0.4 % (0.0-2.0); EOSINOPHILS % (AUTO) 0.4 % (0.0-7.0); HEMATOCRIT 25.5 % (31.2-41.9); HEMOGLOBIN 8.4 g/dL (10.9-14.3); LYMPHOCYTES # (AUTO) 1.3 K/uL (20.0-40.0); LYMPHOCYTES % (AUTO) 12.8 % (20.5-51.5); MEAN CORPUSCULAR HEMOGLOBIN 27.9 uug (24.7-32.8); MEAN CORPUSCULAR HGB CONC 33 g/dL (32.3-35.6); MEAN CORPUSCULAR VOLUME 84.1 fL (75.5-95.3); MONOCYTES # (AUTO) 0.8 K/uL (2.0-10.0); MONOCYTES % (AUTO) 8.3 % (0.0-11.0); NEUTROPHILS # (AUTO) 7.6 K/uL (1.8-8.9); NEUTROPHILS % (AUTO) 78.1 % (38.5-71.5); RED BLOOD CELL COUNT(AUTO) 3.03 MIL/uL (3.63-4.92)
[2017-11-25 10:50] LABS: PLATELET COUNT (AUTO) 662 K/uL (179-408); WHITE BLOOD COUNT (AUTO) 9.8 K/uL (3.8-11.8)
[2017-11-25] MEDS: ATORVASTATIN 10 MG TABLET PO SCH (21:12)
[2017-11-25] MEDS: NORTRIPTYLINE HCL 25 MG CAPSULE PO SCH (21:12)
[2017-11-25 21:47] VITALS: BP 130/58
[2017-11-26 07:30] VITALS: BP 129/53
[2017-11-26] MEDS: LEVOFLOXACIN 500 MG TABLET PO SCH (08:00)
[2017-11-26] MEDS: ASPIRIN 81 MG TAB.CHEW PO SCH (08:00)
[2017-11-26] MEDS: DULOXETINE 20 MG CAPSULE.DR PO SCH (08:00)
[2017-11-26] MEDS: ENTACAPONE 200 MG TABLET PO SCH ×4 (08:00→20:25)
[2017-11-26] MEDS: LACTOBACILLUS RHAMNOSUS GG 1 EACH CAPSULE PO SCH ×2 (08:00→20:25)
[2017-11-26] MEDS: PRAMIPEXOLE 1 MG TABLET PO SCH (08:01)
[2017-11-26] MEDS: QUETIAPINE FUMARATE 25 MG TABLET PO SCH ×2 (08:02→17:18)
[2017-11-26] MEDS: CARBIDOPA/LEVODOPA 25-100MG TABLET PO SCH ×4 (08:02→20:25)
[2017-11-26] MEDS: VALACYCLOVIR HCL 500 MG TABLET PO SCH ×2 (08:03→20:24)
[2017-11-26] MEDS: MAGNESIUM HYDROXIDE 30 ML LIQUID UDC PO PRN (17:18)
[2017-11-26] MEDS: ACETAMINOPHEN 325 MG TABLET PO PRN (17:18)
[2017-11-26] MEDS ORDERED: BISACODYL 10 MG SUPP.RECT RC PRN (17:30)
[2017-11-26] MEDS: NORTRIPTYLINE HCL 25 MG CAPSULE PO SCH (20:24)
[2017-11-26] MEDS: ATORVASTATIN 10 MG TABLET PO SCH (20:25)
[2017-11-26 21:38] VITALS: BP 100/48
[2017-11-27] MEDS: MAGNESIUM HYDROXIDE 30 ML LIQUID UDC PO PRN (05:45)
[2017-11-27] MEDS: ACETAMINOPHEN 325 MG TABLET PO PRN (05:45)
[2017-11-27] MEDS: ASPIRIN 81 MG TAB.CHEW PO SCH (10:38)
[2017-11-27] MEDS: DULOXETINE 20 MG CAPSULE.DR PO SCH (10:39)
[2017-11-27] MEDS: QUETIAPINE FUMARATE 25 MG TABLET PO SCH ×2 (10:39→17:23)
[2017-11-27] MEDS: CARBIDOPA/LEVODOPA 25-100MG TABLET PO SCH ×4 (10:39→21:39)
[2017-11-27] MEDS: VALACYCLOVIR HCL 500 MG TABLET PO SCH ×2 (10:45→21:40)
[2017-11-27] MEDS: PRAMIPEXOLE 1 MG TABLET PO SCH (10:59)
[2017-11-27] MEDS: ENTACAPONE 200 MG TABLET PO SCH ×4 (11:00→23:16)
[2017-11-27] MEDS: LACTOBACILLUS RHAMNOSUS GG 1 EACH CAPSULE PO SCH ×2 (11:01→21:39)
[2017-11-27 19:00] VITALS: BP 110/52
[2017-11-27] MEDS: NORTRIPTYLINE HCL 25 MG CAPSULE PO SCH (21:39)
[2017-11-27] MEDS: ATORVASTATIN 10 MG TABLET PO SCH (21:39)
[2017-11-27] MEDS ORDERED: ENTACAPONE 200 MG TABLET ONE (23:14)
[2017-11-28] MEDS: ACETAMINOPHEN 325 MG TABLET PO PRN (02:30)
[2017-11-28 03:37] VITALS: BP 110/52
[2017-11-28 08:08] LABS: BASOPHILS % (AUTO) 0.5 % (0.0-2.0); EOSINOPHILS # (AUTO) 0.1 K/uL (0.0-0.7); EOSINOPHILS % (AUTO) 1.3 % (0.0-7.0); HEMATOCRIT 24.7 % (31.2-41.9); HEMOGLOBIN 8.3 g/dL (10.9-14.3); LYMPHOCYTES # (AUTO) 1.6 K/uL (20.0-40.0); MEAN CORPUSCULAR HEMOGLOBIN 28.2 uug (24.7-32.8); MEAN CORPUSCULAR HGB CONC 33 g/dL (32.3-35.6); MEAN CORPUSCULAR VOLUME 84.3 fL (75.5-95.3); MONOCYTES # (AUTO) 0.7 K/uL (2.0-10.0); MONOCYTES % (AUTO) 8.1 % (0.0-11.0); NEUTROPHILS # (AUTO) 6.1 K/uL (1.8-8.9); NEUTROPHILS % (AUTO) 71.1 % (38.5-71.5); PLATELET COUNT (AUTO) 565 K/uL (179-408); RED BLOOD CELL COUNT(AUTO) 2.93 MIL/uL (3.63-4.92); WHITE BLOOD COUNT (AUTO) 8.6 K/uL (3.8-11.8)
[2017-11-28 08:12] LABS: ALANINE AMINOTRANSFERASE 11 U/L (14-59); ALKALINE PHOSPHATASE 59 U/L (50-136); ASPARTATE AMINOTRANSFERASE 9 U/L (15-37); BILIRUBIN,TOTAL 0.2 mg/dL (0.2-1.0); CARBON DIOXIDE 26 mmol/L (21-32); CHLORIDE 100 mmol/L (98-107); CREATININE 0.8 mg/dL (0.6-1.3); GLUCOSE 88 mg/dL (74-106); MAGNESIUM 2.3 mg/dL (1.8-2.4); POTASSIUM 4.3 mmol/L (3.5-5.1); TOTAL PROTEIN, SERUM 6.1 g/dL (6.4-8.2); UREA NITROGEN, BLOOD 17 mg/dL (7-18)
[2017-11-28] MEDS: CARBIDOPA/LEVODOPA 25-100MG TABLET PO SCH ×4 (08:30→21:00)
[2017-11-28] MEDS: ASPIRIN 81 MG TAB.CHEW PO SCH (08:30)
[2017-11-28] MEDS: DULOXETINE 20 MG CAPSULE.DR PO SCH (08:30)
[2017-11-28] MEDS: PRAMIPEXOLE 1 MG TABLET PO SCH (08:30)
[2017-11-28] MEDS: LACTOBACILLUS RHAMNOSUS GG 1 EACH CAPSULE PO SCH ×2 (08:30→21:00)
[2017-11-28] MEDS: QUETIAPINE FUMARATE 25 MG TABLET PO SCH ×2 (08:30→16:09)
[2017-11-28] MEDS: VALACYCLOVIR HCL 500 MG TABLET PO SCH ×2 (08:31→21:00)
[2017-11-28 08:49] VITALS: BP 133/57
[2017-11-28] MEDS: ENTACAPONE 200 MG TABLET PO SCH ×4 (09:00→21:00)
[2017-11-28 20:52] VITALS: BP 123/61
[2017-11-28] MEDS: ATORVASTATIN 10 MG TABLET PO SCH (20:59)
[2017-11-28] MEDS: NORTRIPTYLINE HCL 25 MG CAPSULE PO SCH (21:00)
[2017-11-28] MEDS: HYDROCODONE/APAP 5-325MG TABLET PO PRN (22:32)
[2017-11-29 08:00] VITALS: BP 143/53
[2017-11-29] MEDS: VALACYCLOVIR HCL 500 MG TABLET PO SCH ×2 (09:45→21:23)
[2017-11-29] MEDS: QUETIAPINE FUMARATE 25 MG TABLET PO SCH ×2 (09:46→16:39)
[2017-11-29] MEDS: DULOXETINE 20 MG CAPSULE.DR PO SCH (09:46)
[2017-11-29] MEDS: ENTACAPONE 200 MG TABLET PO SCH ×4 (09:46→21:23)
[2017-11-29] MEDS: ASPIRIN 81 MG TAB.CHEW PO SCH (09:47)
[2017-11-29] MEDS: CARBIDOPA/LEVODOPA 25-100MG TABLET PO SCH ×4 (09:47→21:23)
[2017-11-29] MEDS: LACTOBACILLUS RHAMNOSUS GG 1 EACH CAPSULE PO SCH ×2 (10:33→21:23)
[2017-11-29] MEDS: PRAMIPEXOLE 1 MG TABLET PO SCH (10:34)
[2017-11-29 21:00] VITALS: BP 116/61
[2017-11-29] MEDS: ATORVASTATIN 10 MG TABLET PO SCH (21:22)
[2017-11-29] MEDS: NORTRIPTYLINE HCL 25 MG CAPSULE PO SCH (21:23)
[2017-11-30 07:52] VITALS: BP 127/57
[2017-11-30] MEDS: PRAMIPEXOLE 1 MG TABLET PO SCH (08:13)
[2017-11-30] MEDS: DULOXETINE 20 MG CAPSULE.DR PO SCH (08:14)
[2017-11-30] MEDS: QUETIAPINE FUMARATE 25 MG TABLET PO SCH ×2 (08:15→16:53)
[2017-11-30] MEDS: LACTOBACILLUS RHAMNOSUS GG 1 EACH CAPSULE PO SCH ×2 (08:15→20:17)
[2017-11-30] MEDS: ASPIRIN 81 MG TAB.CHEW PO SCH (08:15)
[2017-11-30] MEDS: CARBIDOPA/LEVODOPA 25-100MG TABLET PO SCH ×4 (08:15→20:18)
[2017-11-30] MEDS: ENTACAPONE 200 MG TABLET PO SCH ×4 (08:16→20:18)
[2017-11-30] MEDS: VALACYCLOVIR HCL 500 MG TABLET PO SCH ×2 (08:17→20:18)
[2017-11-30 20:09] VITALS: BP 109/61
[2017-11-30] MEDS: ATORVASTATIN 10 MG TABLET PO SCH (20:18)
[2017-11-30] MEDS: NORTRIPTYLINE HCL 25 MG CAPSULE PO SCH (20:18)
[2017-11-30] MEDS: HYDROCODONE/APAP 5-325MG TABLET PO PRN (23:27)
[2017-12-01] MEDS: VALACYCLOVIR HCL 500 MG TABLET PO SCH ×2 (08:53→20:47)
[2017-12-01] MEDS: ASPIRIN 81 MG TAB.CHEW PO SCH (08:54)
[2017-12-01] MEDS: LACTOBACILLUS RHAMNOSUS GG 1 EACH CAPSULE PO SCH ×2 (08:54→20:47)
[2017-12-01] MEDS: QUETIAPINE FUMARATE 25 MG TABLET PO SCH ×2 (08:54→17:17)
[2017-12-01] MEDS: DULOXETINE 20 MG CAPSULE.DR PO SCH (08:54)
[2017-12-01] MEDS: ENTACAPONE 200 MG TABLET PO SCH ×4 (08:54→20:47)
[2017-12-01] MEDS: CARBIDOPA/LEVODOPA 25-100MG TABLET PO SCH ×4 (08:54→20:47)
[2017-12-01] MEDS: PRAMIPEXOLE 1 MG TABLET PO SCH (08:54)
[2017-12-01 10:57] VITALS: BP 127/67
[2017-12-01 20:36] VITALS: BP 97/47
[2017-12-01] MEDS: ATORVASTATIN 10 MG TABLET PO SCH (20:47)
[2017-12-01] MEDS: NORTRIPTYLINE HCL 25 MG CAPSULE PO SCH (20:47)
[2017-12-02 10:18] VITALS: BP 136/67
[2017-12-02] MEDS: CARBIDOPA/LEVODOPA 25-100MG TABLET PO SCH ×4 (10:29→20:37)
[2017-12-02] MEDS: VALACYCLOVIR HCL 500 MG TABLET PO SCH (10:29)
[2017-12-02] MEDS: QUETIAPINE FUMARATE 25 MG TABLET PO SCH ×2 (10:30→17:29)
[2017-12-02] MEDS: LACTOBACILLUS RHAMNOSUS GG 1 EACH CAPSULE PO SCH ×2 (10:30→20:38)
[2017-12-02] MEDS: ENTACAPONE 200 MG TABLET PO SCH ×4 (10:30→20:38)
[2017-12-02] MEDS: DULOXETINE 20 MG CAPSULE.DR PO SCH (10:30)
[2017-12-02] MEDS: ASPIRIN 81 MG TAB.CHEW PO SCH (10:31)
[2017-12-02] MEDS: PRAMIPEXOLE 1 MG TABLET PO SCH (11:13)
[2017-12-02 20:27] VITALS: BP 115/55
[2017-12-02] MEDS: NORTRIPTYLINE HCL 25 MG CAPSULE PO SCH (20:37)
[2017-12-02] MEDS: ATORVASTATIN 10 MG TABLET PO SCH (20:37)
[2017-12-03] MEDS: HYDROCODONE/APAP 5-325MG TABLET PO PRN ×2 (01:14→21:03)
[2017-12-03 07:06] VITALS: BP 113/57
[2017-12-03] MEDS: ASPIRIN 81 MG TAB.CHEW PO SCH (09:44)
[2017-12-03] MEDS: PRAMIPEXOLE 1 MG TABLET PO SCH (09:45)
[2017-12-03] MEDS: QUETIAPINE FUMARATE 25 MG TABLET PO SCH ×2 (09:46→17:29)
[2017-12-03] MEDS: LACTOBACILLUS RHAMNOSUS GG 1 EACH CAPSULE PO SCH ×2 (09:46→21:01)
[2017-12-03] MEDS: DULOXETINE 20 MG CAPSULE.DR PO SCH (09:46)
[2017-12-03] MEDS: CARBIDOPA/LEVODOPA 25-100MG TABLET PO SCH ×4 (09:47→21:01)
[2017-12-03] MEDS: ENTACAPONE 200 MG TABLET PO SCH ×4 (09:47→21:51)
[2017-12-03 20:51] VITALS: BP 135/55
[2017-12-03] MEDS: NORTRIPTYLINE HCL 25 MG CAPSULE PO SCH (21:01)
[2017-12-03] MEDS: ATORVASTATIN 10 MG TABLET PO SCH (21:01)
[2017-12-03] MEDS ORDERED: ENTACAPONE 200 MG TABLET ONE (21:57)
[2017-12-04 07:06] VITALS: BP 141/68
[2017-12-04] MEDS: QUETIAPINE FUMARATE 25 MG TABLET PO SCH (08:06)
[2017-12-04] MEDS: DULOXETINE 20 MG CAPSULE.DR PO SCH (08:06)
[2017-12-04] MEDS: LACTOBACILLUS RHAMNOSUS GG 1 EACH CAPSULE PO SCH (08:06)
[2017-12-04] MEDS: CARBIDOPA/LEVODOPA 25-100MG TABLET PO SCH ×2 (08:06→12:08)
[2017-12-04] MEDS: PRAMIPEXOLE 1 MG TABLET PO SCH (08:07)
[2017-12-04] MEDS: ASPIRIN 81 MG TAB.CHEW PO SCH (08:07)
[2017-12-04] MEDS: ENTACAPONE 200 MG TABLET PO SCH ×2 (09:00→12:07)
[2017-12-04 15:50] VITALS: BP 125/64
== END 2017-12-04 17:30 | DRG 56 ==
PROVIDERS: ADMIT Physical Medicine & Rehabilitation Pain Medicine; ATTEND Physical Medicine & Rehabilitation Pain Medicine
DX: G20 Parkinson's disease (principal); E43 Unspecified severe protein-calorie malnutrition; J84.9 Interstitial pulmonary disease, unspecified; D68.59 Other primary thrombophilia; I50.32 Chronic diastolic (congestive) heart failure; D64.9 Anemia, unspecified; F03.90 Unspecified dementia, unspecified severity, without behavioral disturbance, psychotic disturbance, mood disturbance, and anxiety; I13.0 Hypertensive heart and chronic kidney disease with heart failure and stage 1 through stage 4 chronic kidney disease, or unspecified chronic kidney disease; R47.01 Aphasia; N39.0 Urinary tract infection, site not specified; Z86.73 Personal history of transient ischemic attack (TIA), and cerebral infarction without residual deficits; I25.10 Atherosclerotic heart disease of native coronary artery without angina pectoris; R53.1 Weakness; R32 Unspecified urinary incontinence; M19.90 Unspecified osteoarthritis, unspecified site; M81.0 Age-related osteoporosis without current pathological fracture; E03.9 Hypothyroidism, unspecified; R29.6 Repeated falls; G89.29 Other chronic pain; B00.9 Herpesviral infection, unspecified; R19.5 Other fecal abnormalities; F32.9 Major depressive disorder, single episode, unspecified; F41.9 Anxiety disorder, unspecified; M54.10 Radiculopathy, site unspecified; N18.9 Chronic kidney disease, unspecified; H91.90 Unspecified hearing loss, unspecified ear
CPT/HCPCS: 36415; 83735; 84100; 85025; 92526; 92610; 97110; 97112; 97116; 97165; 97530; 97535; A4663